=== PATIENT | female | born 1945 | race Caucasian/White ===

== ENCOUNTER 2018-08-02 15:04 | Inpatient (IN) ==
--- NOTE | 2018-08-02 16:08 | Emergency Department Note ---
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 No trauma to the stump. She does not wear a prosthesis. She is in a long-term because "I cannot get around at my daughter's house". She is also had a cough that although chronic is been a bit more productive over the last 3 days. No increased shortness of breath. She does have COPD continues to smoke. The doctor at the long-term called and presented Miss Benson to me regarding a white blood count that went from 16-19 and kidney function that is decreasing as well a most recent GFR of 22. Pain of the stump is been going on for about 2-3 weeks. Been getting dressed at the long-term. Typically red in front of the knee and to the side weight currently is but the skin is typically intact. No fevers no chills no nausea no vomiting oral intake is normal. No diarrhea. No chest or abdominal pain. No urinary symptoms. Pain Scale: 5 - Related Data Home Medications Medication Instructions Recorded Confirmed Albuterol Sulfate [Ventolin Hfa] 2 inh IH Q4H PRN 08/02/18 08/02/18 Atorvastatin [Lipitor] 80 mg PO DAILY 08/02/18 08/02/18 Budesonide/Formoterol 160/4.5 2 puff IH BIDR 08/02/18 08/02/18 [Symbicort 160/4.5] Dexlansoprazole [Dexilant] 60 mg PO DAILY 08/02/18 08/02/18 Fluticasone Propionate Nasal 2 spray NS DAILY 08/02/18 08/02/18 [Flonase] Furosemide [Lasix] 60 mg PO BID 08/02/18 08/02/18 Insulin ASPART [NovoLOG] 11 unit SQ BIDWM 08/02/18 08/02/18 Insulin ASPART [Novolog] 0 unit SQ ACHS 08/02/18 08/02/18 Insulin Glargine,Hum.rec.anlog 18 unit SQ HS 08/02/18 08/02/18 [Basaglar Kwikpen U-100] Ipratropium/Albuterol Neb [Duoneb] 3 ml IH Q6HR 08/02/18 08/02/18 Lisinopril [Zestril] 40 mg PO DAILY 08/02/18 08/02/18 Metoclopramide [Reglan] 5 mg PO ACHS 08/02/18 08/02/18 Rivaroxaban [Xarelto] 15 mg PO DAILY 08/02/18 08/02/18 Sennosides/Docusate Sodium 1 each PO BID PRN 08/02/18 08/02/18 [Senna-S Tablet] Sertraline [Zoloft] 100 mg PO DAILY 08/02/18 08/02/18 Spironolactone 25 mg PO DAILY 08/02/18 08/02/18 metFORMIN [Glucophage] 500 mg PO BIDWM 08/02/18 08/02/18 predniSONE [PredniSONE] 10 mg PO DAILY 08/02/18 08/02/18 Allergies Allergy/AdvReac Type Severity Reaction Status Date / Time Penicillins Allergy Hives Verified 08/26/16 08:23 tetanus immune globulin AdvReac Redness of Verified 08/26/16 08:23 Skin Constitutional: Denies: fever, chills ENT ED: Denies: ear pain, throat pain, dysphagia Cardiovascular: Reports: dyspnea on exertion (Chronic). Denies: chest pain Respiratory: Reports: cough (Chronic and also as per history of present illness), sputum production Gastrointestinal: Denies: abdominal pain, nausea, vomiting, diarrhea Genitourinary: Reports: as per HPI Musculoskeletal: Reports: arthralgia Integumentary: Reports: as per HPI (Erythema as per history of present illness) Neurological: Denies: headache Endocrine: Denies: fatigue Hematological/Lymphatic: Reports: easy bleeding, easy bruising Past Medical History - Past Medical History Medical history: Reports: CHF, COPD, diabetes, GERD, hyperlipidemia, hypertension Psychiatric history: Reports: no psych history - Social History Smoking Status: Current every day smoker Smokeless Tobacco Status: No Alcohol use: Reports: none Drug use: Reports: none Physical Exam - General Limitations: no limitations General appearance: alert, in no apparent distress - Head Head exam: atraumatic, normocephalic - Eye Eye exam: Present: normal appearance - ENT ENT exam: mucous membranes moist - Neck Neck exam: Present: normal inspection - Chest Chest inspection: Present: normal inspection, symmetric chest wall rise - Respiratory Respiratory exam: Present: wheezes (And expiratory wheezes bilaterally symmetrically). Absent: respiratory distress, accessory muscle use - Cardiovascular Cardiovascular exam: Present: regular rate, normal rhythm, normal heart sounds, other (I am not able to palpate either popliteal pulse. +2 bilateral femoral). Absent: systolic murmur, diastolic murmur - Abdominal Exam Abdominal exam: Present: soft, Non-Tender - Extremities Exam Extremities exam: Present: other (Left BKA stump erythema in 2 places anterior midline and laterally. She tells me that the erythema is chronic. It is somewhat painful to palpation. Midline anterior is a scab 1 x 2 cm which was peeled. It revealed a wound bed with no exudate or fluctuance. Laterally there is breakdown of the skin in an area of approximately 2 x 7 cm. There is a pinhole in the medial portion of this area which was bluntly probed with sterile forceps. Bone was not palpated. Lateral area is also fluctuant versus redundant edematous tissue.). Absent: pedal edema, calf tenderness - Neurological Exam Neurological exam: Present: alert - Psychiatric Psychiatric exam: Present: normal affect, normal mood - Skin Skin exam: Present: erythema (As per history of present illness) Course Vital Signs Temperature 98.6 F 08/02/18 15:07 Pulse Rate 90 08/02/18 15:07 Respiratory Rate 18 08/02/18 15:07 Blood Pressure 116/66 08/02/18 15:07 O2 Sat by Pulse Oximetry 99 08/02/18 15:07 Temperature 98.6 F 08/02/18 15:07 Pulse Rate 90 08/02/18 15:07 Respiratory Rate 18 08/02/18 15:07 Blood Pressure 116/66 08/02/18 15:07 O2 Sat by Pulse Oximetry 99 08/02/18 15:07 Oxygen Delivery Oxygen Delivery Room Air Medical Decision Making - MDM Narrative Medical decision making narrative: Leukocytosis. Most likely cause is the leg has a focus. CAT scan done to rule out abscess which was negative. Also some evidence of urinary tract infection as well. We will use Levaquin to cover both likely organisms for each etiology. Ask. wound care to come by tomorrow. Acute kidney injury. We will stop attending medications and IV hydrate her. Be prudent to do this in the hospital and check her labs in the morning to ensure that this is resolving. She is in agreement with this. I spoke with the covering hospitalist and presented the case. He accepted admission. She is alert pleasant and in no visible distress just prior to transfer to her room. - Lab Data Lab results reviewed: Yes I reviewed the patient's lab results. Result diagrams: 08/02/18 16:21 08/02/18 16:21 Lab Results 08/02/18 08/02/18 08/02/18 Range/Units 16:21 16:21 16:21 WBC 21.1 H (4.3-11.1) K/mcL RBC 4.15 (3.82-4.97) M/mcL Hgb 7.9 L (11.5-15.4) g/dL Hct 27.0 L (35.3-44.9) % MCV 65.1 L (83.0-100.0) fL MCH 19.0 L (28.0-33.3) pg MCHC 29.3 L (31.6-35.5) g/dL RDW 19.9 H (11.5-14.5) % Plt Count 576 H (140-400) K/mcL MPV 9.1 L (9.4-12.4) fL Immature Gran % 0.8 (0-4) % Seg Neutrophils % 81.3 % Lymphocytes % 12.9 % Monocytes % 4.8 % Eosinophils % 0.0 % Basophils % 0.2 % Neutrophils # 17.2 H (1.6-8.9) K/mcL Lymphocytes # 2.7 (0.6-4.6) K/mcL Monocytes # 1.0 (0.0-1.3) K/mcL Eosinophils # 0.0 (0.0-0.6) K/mcL Basophils # 0.0 (0.0-0.2) K/mcL Anisocytosis 1+ A (Not Present) PT 12.6 H (9.4-12.1) Seconds INR 1.1 APTT 30.3 (26.0-36.0) Seconds Sodium (136-145) mEq/L Potassium (3.5-5.1) mEq/L Chloride (98-107) mEq/L Carbon Dioxide (23-29) mEq/L BUN (8-23) mg/dL Creatinine (0.60-1.20) mg/dL Est GFR ( Amer) (> 60) Est GFR (Non-Af Amer) (> 60) BUN/Creatinine Ratio (6-26) Glucose (70-105) mg/dL Calculated Osmolality (280-300) Lactic Acid 1.3 (0.5-2.2) mmol/L Calcium (8.6-10.3) mg/dL Magnesium (1.6-2.6) mg/dL Total Bilirubin (0.3-1.0) mg/dL AST (13-39) Units/L ALT (7-52) Units/L Alkaline Phosphatase (34-104) Units/L Serum Total Protein (6.4-8.9) g/dL Albumin (3.5-5.7) g/dL Globulin (2.4-3.5) g/dL Albumin/Globulin Ratio (1.1-2.2) Urine Color (Yellow) Urine Clarity (Clear) Urine pH (5.0-8.0) pH Units Ur Specific [place] (1.010-1.025) Urine Protein (Neg-Trace) mg/dL Urine Glucose (UA) (Normal) mg/dL Urine Ketones (Negative) mg/dL Urine Blood (Negative) Urine Nitrite (Negative) Urine Bilirubin (Negative) Urine Urobilinogen (Normal) mg/dL Ur Leukocyte Esterase (Negative) Urine Microscopic WBC (0-3) per hpf Ur Squamous Epith Cells (None-Few) per lpf Urine Bacteria (None-Few) per hpf Ur Culture Indicated? (NO) 08/02/18 08/02/18 Range/Units 16:21 16:50 WBC (4.3-11.1) K/mcL RBC (3.82-4.97) M/mcL Hgb (11.5-15.4) g/dL Hct (35.3-44.9) % MCV (83.0-100.0) fL MCH (28.0-33.3) pg MCHC (31.6-35.5) g/dL RDW (11.5-14.5) % Plt Count (140-400) K/mcL MPV (9.4-12.4) fL Immature Gran % (0-4) % Seg Neutrophils % % Lymphocytes % % Monocytes % % Eosinophils % % Basophils % % Neutrophils # (1.6-8.9) K/mcL Lymphocytes # (0.6-4.6) K/mcL Monocytes # (0.0-1.3) K/mcL Eosinophils # (0.0-0.6) K/mcL Basophils # (0.0-0.2) K/mcL Anisocytosis (Not Present) PT (9.4-12.1) Seconds INR APTT (26.0-36.0) Seconds Sodium 133 L (136-145) mEq/L Potassium 4.7 (3.5-5.1) mEq/L Chloride 98 (98-107) mEq/L Carbon Dioxide 27 (23-29) mEq/L BUN 49 H (8-23) mg/dL Creatinine 1.74 H (0.60-1.20) mg/dL Est GFR ( Amer) 35 L (> 60) Est GFR (Non-Af Amer) 29 L (> 60) BUN/Creatinine Ratio 28 H (6-26) Glucose 166 H (70-105) mg/dL Calculated Osmolality 293 (280-300) Lactic Acid (0.5-2.2) mmol/L Calcium 9.1 (8.6-10.3) mg/dL Magnesium 2.3 (1.6-2.6) mg/dL Total Bilirubin 0.4 (0.3-1.0) mg/dL AST 20 (13-39) Units/L ALT 11 (7-52) Units/L Alkaline Phosphatase 64 (34-104) Units/L Serum Total Protein 6.3 L (6.4-8.9) g/dL Albumin 3.6 (3.5-5.7) g/dL Globulin 2.7 (2.4-3.5) g/dL Albumin/Globulin Ratio 1.3 (1.1-2.2) Urine Color Yellow (Yellow) Urine Clarity Clear (Clear) Urine pH 5.0 (5.0-8.0) pH Units Ur Specific [place] 1.015 (1.010-1.025) Urine Protein Negative (Neg-Trace) mg/dL Urine Glucose (UA) Normal (Normal) mg/dL Urine Ketones Negative (Negative) mg/dL Urine Blood Negative (Negative) Urine Nitrite Positive A (Negative) Urine Bilirubin Negative (Negative) Urine Urobilinogen Normal (Normal) mg/dL Ur Leukocyte Esterase Negative (Negative) Urine Microscopic WBC 3-5 H (0-3) per hpf Ur Squamous Epith Cells Few (None-Few) per lpf Urine Bacteria Many H (None-Few) per hpf Ur Culture Indicated? YES A (NO) - Radiology Data Radiology results reviewed: Yes I reviewed the patient's radiology results.
[2018-08-02 16:32] LABS: Basophils % 0.2 %; Hemoglobin 7.9 g/dL (11.5-15.4); Immature Granulocytes % 0.8 % (0-4); Lymphocytes # 2.7 K/mcL (0.6-4.6); Lymphocytes % 12.9 %; Mean Corpuscular HGB Conc 29.3 g/dL (31.6-35.5); Mean Corpuscular Volume 65.1 fL (83.0-100.0); Mean Platelet Volume 9.1 fL (9.4-12.4); Monocytes % 4.8 %; Platelet Count 576 K/mcL (140-400); Red Blood Count 4.15 M/mcL (3.82-4.97); Red Cell Distribution Width 19.9 % (11.5-14.5); Segmented Neutrophils % 81.3 %
[2018-08-02 16:34] LABS: Neutrophils # 17.2 K/mcL (1.6-8.9)
[2018-08-02 16:35] LABS: Anisocytosis 1+ (Not Present)
[2018-08-02 16:42] LABS: INR 1.1; Prothrombin Time 12.6 Seconds (9.4-12.1)
[2018-08-02 16:44] LABS: Activated Partial Thrombo Time 30.3 Seconds (26.0-36.0)
[2018-08-02 16:49] LABS: Albumin 3.6 g/dL (3.5-5.7); Albumin/Globulin Ratio 1.3 (1.1-2.2); Bilirubin,Total 0.4 mg/dL (0.3-1.0); Calcium 9.1 mg/dL (8.6-10.3); Globulin 2.7 g/dL (2.4-3.5); Magnesium 2.3 mg/dL (1.6-2.6); Potassium 4.7 mEq/L (3.5-5.1); Total Protein 6.3 g/dL (6.4-8.9)
[2018-08-02 17:03] LABS: Bilirubin,Urine Negative (Negative); Blood,Urine Negative (Negative); Clarity,Urine Clear (Clear); Color,Urine Yellow (Yellow); Glucose,Urine (UA) Normal (Normal); Ketones,Urine Negative (Negative); Leukocyte Esterase,Urine Negative (Negative); Nitrite,Urine Positive (Negative); Protein,Urine Negative (Neg-Trace); Specific Gravity,Urine 1.015 (1.010-1.025); Urobilinogen,Urine Normal (Normal)
[2018-08-02] MEDS ORDERED: 0.9 % Sodium Chloride 1,000 ML IVC ONE (17:13)
[2018-08-02 17:16] LABS: Bacteria,Urine Many per hpf (None-Few); Squamous Epithelial Cell,Urine Few per lpf (None-Few)
[2018-08-02] MEDS ORDERED: Levofloxacin 500 MG/100 ML 500 MG/100 ML BAG IVPB SCH (18:30)
[2018-08-02] MEDS ORDERED: 0.9 % Sodium Chloride 1,000 ML IVC SCH ×2 (18:45→18:51)
[2018-08-02] MEDS ORDERED: Naloxone 0.4 MG/ML INJ IVP PRN (18:51)
[2018-08-02] MEDS ORDERED: Sennosides/Docusate Sodium TABLET PO PRN (18:51)
[2018-08-02] MEDS ORDERED: Levofloxacin 750 MG/150 ML 750 MG/150 ML BAG IVPB SCH (19:05)
[2018-08-02] MEDS: 0.9 % Sodium Chloride 1,000 ML IVC SCH (20:37)
[2018-08-02] MEDS: Budesonide/Formoterol 160/4.5 1 PUFF INH IH SCH (20:49)
[2018-08-02] MEDS ORDERED: Insulin DETEMIR 100 UNIT/ML per UNIT SQ ONE (21:00)
[2018-08-02] MEDS ORDERED: traMADol 50 MG TABLET PO PRN (21:02)
[2018-08-02] MEDS ORDERED: Acetaminophen 325 MG TABLET PO PRN (21:05)
[2018-08-02] MEDS ORDERED: Ondansetron ODT 4 MG TAB.RAPDIS SL PRN (23:00)
[2018-08-02] MEDS: Ipratropium/Albuterol Neb 3 ML IH SCH (23:14)
[2018-08-03] MEDS ORDERED: traMADol 50 MG TABLET PO PRN (00:21)
[2018-08-03] MEDS ORDERED: Ondansetron ODT 4 MG TAB.RAPDIS SL PRN (00:21)
[2018-08-03] MEDS ORDERED: Acetaminophen 325 MG TABLET PO PRN (00:21)
[2018-08-03] MEDS: 0.9 % Sodium Chloride 1,000 ML IVC SCH (04:26)
[2018-08-03 06:10] LABS: Basophils % 0.2 %; Eosinophils % 0.1 %; Hematocrit 24.5 % (35.3-44.9); Hemoglobin 7.1 g/dL (11.5-15.4); Immature Granulocytes % 0.5 % (0-4); Lymphocytes # 1.4 K/mcL (0.6-4.6); Lymphocytes % 10.1 %; Mean Corpuscular Hemoglobin 18.9 pg (28.0-33.3); Mean Corpuscular Volume 65.2 fL (83.0-100.0); Mean Platelet Volume 9.1 fL (9.4-12.4); Monocytes # 0.9 K/mcL (0.0-1.3); Monocytes % 6.3 %; Neutrophils # 11.7 K/mcL (1.6-8.9); Platelet Count 518 K/mcL (140-400); Red Blood Count 3.76 M/mcL (3.82-4.97); Red Cell Distribution Width 20.1 % (11.5-14.5); Segmented Neutrophils % 82.8 %
[2018-08-03 06:37] LABS: Calcium 8.4 mg/dL (8.6-10.3)
[2018-08-03 06:48] LABS: Hypochromasia Present (Not Present); Microcytosis Present (Not Present)
[2018-08-03 06:49] LABS: Anisocytosis 2+ (Not Present); Poikilocytosis 1+ (Not Present)
[2018-08-03] MEDS: Ipratropium/Albuterol Neb 3 ML IH SCH ×3 (08:22→21:09)
[2018-08-03] MEDS: *HR* Rivaroxaban 15 MG TABLET PO SCH (08:24)
[2018-08-03] MEDS: predniSONE 10 MG TABLET PO SCH (08:24)
[2018-08-03] MEDS: Insulin LISPRO 300 UNITS/3 ML VIAL SQ SCH ×2 (08:25→17:24)
[2018-08-03] MEDS: Budesonide/Formoterol 160/4.5 1 PUFF INH IH SCH ×2 (08:34→21:10)
[2018-08-03] MEDS ORDERED: Levofloxacin 500 MG/100 ML 500 MG/100 ML BAG IVPB SCH ×2 (09:00)
--- NOTE | 2018-08-03 11:38 | Internal Med History&Physical ---
Addendum entered and electronically signed by Kwan Syed DO Yamil 08/03/18 14:52: I have personally performed a face to face evaluation on this patient. I have reviewed and agree with the care plan. History and Exam by me shows: Addendum entered and electronically signed by Kwan LoboDO 08/03/18 14:32: I have personally performed a face to face evaluation on this patient. I have reviewed and agree with the care plan. History and Exam by me shows: Original Note: Date of Encounter: 08/03/18 Time of Encounter: 11:36 Assessment and Plan (1) Leukocytosis Current visit: Yes Status: Acute White blood cell count 14.1. Afebrile. Will continue to monitor. Continue Levaquin IV. Blood cultures pending. Urine culture pending. Qualifiers: Leukocytosis type: unspecified Qualified Code(s): D72.829 - Elevated white blood cell count, unspecified (2) History of right below knee amputation Current visit: Yes Status: Acute Assist with ADLs as necessary. (3) Wounds, multiple Current visit: Yes Status: Acute Wound to Right BKA. Will consult wound care (4) Acute kidney injury Current visit: Yes Status: Acute BUN 36, creatinine 1.4. Continue IV fluids. Will repeat labs. (5) Anemia Current visit: Yes Status: Acute Hemoglobin 7.1. Patient is asymptomatic. Will repeat CBC. Qualifiers: Anemia type: unspecified type Qualified Code(s): D64.9 - Anemia, unspecified (6) Hyperlipidemia Current visit: Yes Status: Chronic Continue Lipitor. Qualifiers: Hyperlipidemia type: unspecified Qualified Code(s): E78.5 - Hyperlipidemia, unspecified (7) Diabetes mellitus type 2, insulin dependent Current visit: Yes Status: Acute Controlled with insulin. Monitor fingerstick blood sugar. Will adjust medicines as necessary. (8) COPD (chronic obstructive pulmonary disease) Current visit: Yes Status: Chronic Continue inhaled meds. Monitor oxygen level. stAble at this time. Qualifiers: COPD type: unspecified COPD Qualified Code(s): J44.9 - Chronic obstructive pulmonary disease, unspecified (9) Tobacco use Current visit: Yes Status: Acute Internal Medicine - H&P: HPI Admitted From: Emergency Dept Plans for Post Hospital Care: Transfer Snf Care History of present illness: Ms. Benson is a 73 year old female admitted to inpatient unit after presenting to the emergency room with increased cough for 3 days, elevated white count and elevated be UN and creatinine. Patient has been living in [facility] for the past 3 years. She has a right BKA times 3 years after having gangrene. She has had a chronic wound on the stump. Denies fever, chills, nausea vomiting or diarrhea. Denies any urinary symptoms. Denies any shortness of breath or chest pain.. States cough is productive. Past medical history includes COPD. Patient continues to smoke cigarettes. Past Med Surg Social Fam HX - Past Medical History Medical history: CHF, COPD, diabetes, GERD, hyperlipidemia, hypertension Additional medical history: PVD, ANEMIA Psychiatric history: no psych history - Past Surgical History Additional surgical history: R BKA - Social History Smoking Status: Current every day smoker Packs per day: 0.5 Smokeless Tobacco Status: No Alcohol use: none Drug use: none - Family History Mother Living Status: Age at : 63 Cause of : CO Hx Family Cardiac Disorders: Yes (CO) Father Age at : 46 Cause of : Suicide Hx Family Psychosocial Disorders: Yes (Alchoholic) Internal Medicine - H&P: Meds Albuterol Sulfate [Ventolin Hfa] 2 inh IH Q4H PRN 08/02/18 [History] Atorvastatin [Lipitor] 80 mg PO DAILY 08/02/18 [History] Budesonide/Formoterol 160/4.5 [Symbicort 160/4.5] 2 puff IH BIDR 08/02/18 [History] Dexlansoprazole [Dexilant] 60 mg PO DAILY 08/02/18 [History] Fluticasone Propionate Nasal [Flonase] 2 spray NS DAILY 08/02/18 [History] Furosemide [Lasix] 60 mg PO BID 08/02/18 [History] Insulin ASPART [NovoLOG] 11 unit SQ BIDWM 08/02/18 [History] Insulin ASPART [Novolog] 0 unit SQ ACHS 08/02/18 [History] Insulin Glargine,Hum.rec.anlog [Basaglar Kwikpen U-100] 18 unit SQ HS 08/02/18 [History] Ipratropium/Albuterol Neb [Duoneb] 3 ml IH Q6HR 08/02/18 [History] Lisinopril [Zestril] 40 mg PO DAILY 08/02/18 [History] Metoclopramide [Reglan] 5 mg PO ACHS 08/02/18 [History] Rivaroxaban [Xarelto] 15 mg PO DAILY 08/02/18 [History] Sennosides/Docusate Sodium [Senna-S Tablet] 1 each PO BID PRN 08/02/18 [History] Sertraline [Zoloft] 100 mg PO DAILY 08/02/18 [History] Spironolactone 25 mg PO DAILY 08/02/18 [History] metFORMIN [Glucophage] 500 mg PO BIDWM 08/02/18 [History] predniSONE [PredniSONE] 10 mg PO DAILY 08/02/18 [History] Allergy/AdvReac Type Severity Reaction Status Date / Time Penicillins Allergy Hives Verified 08/26/16 08:23 tetanus immune globulin AdvReac Redness of Verified 08/26/16 08:23 Skin All Systems PM: A 10-system review of systems was performed and is negative for pertinent findings except as documented above in the HPI. - Constitutional Constitutional: no chills, no fever(s), no night sweats - EENT Eyes: no change in vision, no discharge, no pain, no photophobia Ears: no ear discharge, no ear pain, no tinnitus Nose, mouth and throat: no dysphagia, no nasal discharge, no neck pain, no sore throat - Cardiovascular Cardiovascular ROS IM: no chest pain, no diaphoresis, no dyspnea, no lightheadedness, no palpitations, no syncope - Respiratory Respiratory: no cough, no dyspnea, no wheezing, no excessive phlegm production - Gastrointestinal Gastrointestinal: no abdominal pain, no diarrhea, no hematemesis, no hematochezia, no melena, no nausea, no vomiting - Genitourinary Genitourinary: no change in urinary stream, no dysuria, no flank pain, no hematuria - Musculoskeletal Musculoskeletal ROS IM: no numbness, no tingling - Integumentary Integumentary IM: no rash, no unusual bruising - Neurological Neurological ROS: no confusion, no convulsions, no focal weakness, no numbness, no tingling, no tremor(s) - Hematologic/Lymphatic Hematologic/Lymphatic: no easy bruising - Constitutional Vitals: Temp Pulse Resp BP Pulse Ox 97.8 F 89 19 108/67 94 08/03/18 07:55 08/03/18 07:55 08/03/18 09:02 08/03/18 07:55 08/03/18 09:02 General appearance: Present: cooperative, A&O X 3, pleasant, no acute distress, answers questions appropriately - Head Head exam: Present: atraumatic, normocephalic - Eye Eye exam: Present: PERRL, conjuntiva pink, sclera anicteric Pupils: Present: PERRL - Neck Neck exam general surgery: Present: supple, trachea midline. Absent: lymphadenopathy - Respiratory Respiratory exam: Present: rhonchi. Absent: accessory muscle use, rales, whee zes Additional comments: Rhonchi to right upper lobe. - Cardiovascular Cardiovascular exam: Present: RRR, +S1, +S2. Absent: diastolic murmur, gallop, rubs, systolic murmur - GI/Abdominal GI/Abdominal exam: Present: normal bowel sounds, soft, no peritoneal signs. Absent: distended, tenderness - Extremities Exam Extremities exam: Present: warm, radial pulses palpable and symmetrical. Absent: calf tenderness, cyanotic, pedal edema Additional comments: Right BKA - Neurological Exam Neurological exam: Present: CN II-XII intact, oriented X3, no focal deficits. Absent: pronater drift, facial droop, speech deficit - Skin Skin exam: Present: dry, intact Additional comments: Wound to anterior right BKA stump. Lateral wounds with slight exudate. No drainage. Middle wound with granulated tissue in wound bed. scattered ecchymosis to body. Internal Med - H&P Results - Labs CBC & Chem 7: 08/03/18 05:40 08/03/18 05:40 Labs: Short CBC 08/02/18 08/03/18 Range/Units 16:21 05:40 WBC 21.1 H 14.1 H (4.3-11.1) K/mcL Hgb 7.9 L 7.1 L (11.5-15.4) g/dL Hct 27.0 L 24.5 L (35.3-44.9) % Plt Count 576 H 518 H (140-400) K/mcL Neutrophils # 17.2 H 11.7 H (1.6-8.9) K/mcL BMP 08/02/18 08/03/18 16:21 05:40 Sodium 133 L 136 Potassium 4.7 5.0 Chloride 98 105 Carbon Dioxide 27 26 BUN 49 H 36 H Creatinine 1.74 H 1.40 H Glucose 166 H 111 H Calcium 9.1 8.4 L Liver Function 08/02/18 Range/Units 16:21 Total Bilirubin 0.4 (0.3-1.0) mg/dL AST 20 (13-39) Units/L ALT 11 (7-52) Units/L Alkaline Phosphatase 64 (34-104) Units/L Albumin 3.6 (3.5-5.7) g/dL Urine 08/02/18 Range/Units 16:50 Urine Color Yellow (Yellow) Urine Clarity Clear (Clear) Urine pH 5.0 (5.0-8.0) pH Units Ur Specific [place] 1.015 (1.010-1.025) Urine Protein Negative (Neg-Trace) mg/dL Urine Glucose (UA) Normal (Normal) mg/dL - Impressions ITS Impressions Chest X-Ray 08/02/18 16:03 IMPRESSION: No acute cardiopulmonary disease. D/ / Danny Pal MD / Danny Pal MD Interpreting Provider: Danny Pal MD Knee CT 08/02/18 17:33 IMPRESSION: 1. No evidence of osteomyelitis or abscess. 2. Skin thickening and suspected small shallow soft tissue ulceration about the lateral amputation site. D/ / 08/02/2018 18:01:54 Tee Rider MD / amy Interpreting Provider: Tee Rider MD - VTE Reasons for not Prescribing Prophylaxis: Not indicated-Anticoagulated or INR t herapeutic
[2018-08-03] MEDS: Fluticasone Propionate Nasal 50 MCG/SPRAY BOTTLE NS SCH ×2 (11:47→12:29)
[2018-08-03] MEDS ORDERED: Insulin DETEMIR 100 UNIT/ML X5UNITS SQ SCH (21:00)
[2018-08-03] MEDS: Insulin DETEMIR 100 UNIT/ML X5UNITS SQ SCH (21:09)
[2018-08-04] MEDS: Ipratropium/Albuterol Neb 3 ML IH SCH ×4 (03:41→20:48)
[2018-08-04 05:49] LABS: Basophils % 0.2 %; Hematocrit 24.6 % (35.3-44.9); Immature Granulocytes % 0.8 % (0-4); Lymphocytes # 1.1 K/mcL (0.6-4.6); Lymphocytes % 6.7 %; Mean Corpuscular HGB Conc 28.5 g/dL (31.6-35.5); Mean Corpuscular Hemoglobin 18.9 pg (28.0-33.3); Mean Corpuscular Volume 66.5 fL (83.0-100.0); Mean Platelet Volume 9.2 fL (9.4-12.4); Monocytes # 1.3 K/mcL (0.0-1.3); Monocytes % 7.7 %; Neutrophils # 14.4 K/mcL (1.6-8.9); Platelet Count 517 K/mcL (140-400); Red Cell Distribution Width 20.4 % (11.5-14.5); Segmented Neutrophils % 84.6 %
[2018-08-04 06:02] LABS: Potassium 4.8 mEq/L (3.5-5.1)
[2018-08-04] MEDS ORDERED: Aminoglycoside Consult 1 EACH MC ONE (06:09)
[2018-08-04] MEDS: Insulin LISPRO 300 UNITS/3 ML VIAL SQ SCH ×2 (08:15→17:14)
[2018-08-04] MEDS: predniSONE 10 MG TABLET PO SCH (08:15)
[2018-08-04] MEDS: *HR* Rivaroxaban 15 MG TABLET PO SCH (08:15)
[2018-08-04] MEDS: Fluticasone Propionate Nasal 50 MCG/SPRAY BOTTLE NS SCH (08:16)
[2018-08-04] MEDS: Budesonide/Formoterol 160/4.5 1 PUFF INH IH SCH ×2 (09:05→20:51)
--- NOTE | 2018-08-04 13:52 | Internal Med Progress Note ---
Date of Encounter: 08/04/18 Time of Encounter: 13:49 - Assessment and plan (1) Wounds, multiple Current Visit: Yes Status: Acute Assessment and plan: Patient's right BKA stump with dressing that is dry and intact. Patient remains afebrile at this time. Alert sent from laboratory on wound culture of right stump, which shows positive for MRSA. Patient started on vancomycin per Dr. Lobo. We will consult wound care to evaluate. (2) Diabetes mellitus type 2, insulin dependent Current Visit: Yes Status: Acute Assessment and plan: Patient continues to progress well with glucose more controlled today. Most recent glucose was at 148. We will continue with sliding scale coverage. Continue with current plan of care (3) COPD (chronic obstructive pulmonary disease) Current Visit: Yes Status: Chronic Assessment and plan: Patient appears relaxed with respiratory status. Lungs are diminished throughout basilar [place] but otherwise clear. No productive cough. Denies any dyspnea. We will continue with current medications and plan a care. Qualifiers: COPD type: unspecified COPD Qualified Code(s): J44.9 - Chronic obstructive pulmonary disease, unspecified - Time Spent With Patient less than 15 minutes - Subjective Interval history: Patient appears relaxed and currently denies any discomforts or shortness of breath. Patient denies any productive cough. Lab results of wound culture to her right BKA stump were received which shows positive for MRSA. Patient currently has dressing to right stump which is dry and intact. - Constitutional Vitals: Temp Pulse Resp BP Pulse Ox 97.8 F 83 21 107/66 90 08/04/18 11:34 08/04/18 11:34 08/04/18 11:34 08/04/18 11:34 08/04/18 11:34 General appearance: Present: cooperative, A&O X 3, pleasant, no acute distress, answers questions appropriately - Head Head exam: Present: atraumatic, normocephalic - Eye Eye exam: Present: PERRL, conjuntiva pink, sclera anicteric Pupils: Present: PERRL - Neck Neck exam general surgery: Present: supple, trachea midline. Absent: lymphadenopathy - Respiratory Respiratory exam: Present: CTAB. Absent: accessory muscle use, rales, rhonchi, wheezes Additional comments: Lungs are clear throughout upper [place] with diminished breath sounds towards posterior basis. Patient denies any dyspnea. No productive cough noted. Respiratory effort appears relaxed - Cardiovascular Cardiovascular exam: Present: RRR, +S1, +S2. Absent: diastolic murmur, gallop, rubs, systolic murmur - GI/Abdominal GI/Abdominal exam: Present: normal bowel sounds, soft, no peritoneal signs. Absent: distended, tenderness - Extremities Exam Extremities exam: Present: warm, radial pulses palpable and symmetrical. Absent: calf tenderness, cyanotic, pedal edema Additional comments: Right BKA with 2 dressings at the stump which are dry and intact. - Neurological Exam Neurological exam: Present: CN II-XII intact, oriented X3, no focal deficits. Absent: pronater drift, facial droop, speech deficit - Skin Skin exam: Present: dry, intact Internal Medicine: Result - Labs CBC & Chem 7: 08/04/18 05:30 08/04/18 05:30 Labs: Short CBC 08/04/18 Range/Units 05:30 WBC 17.0 H (4.3-11.1) K/mcL Hgb 7.0 L (11.5-15.4) g/dL Hct 24.6 L (35.3-44.9) % Plt Count 517 H (140-400) K/mcL Neutrophils # 14.4 H (1.6-8.9) K/mcL BMP 08/04/18 05:30 Sodium 138 Potassium 4.8 Chloride 105 Carbon Dioxide 24 BUN 29 H Creatinine 1.31 H Glucose 206 H Calcium 9.0 - ABG Interpretation ABG results: PT/INR, D-dimer PT 12.6 Seconds (9.4-12.1) H 08/02/18 16:21 - VTE Reasons for not Prescribing Prophylaxis: Not indicated-Anticoagulated or INR therapeutic Consult Discharge Plan - Plan Referrals: Lorena Zavala MD [Primary Care Provider] -
[2018-08-04] MEDS ORDERED: Levofloxacin 750 MG/150 ML 750 MG/150 ML BAG IVPB SCH (19:05)
[2018-08-04] MEDS: Insulin DETEMIR 100 UNIT/ML X5UNITS SQ SCH (20:23)
[2018-08-05 00:40] VITALS: BP 90/47
[2018-08-05] MEDS: Ipratropium/Albuterol Neb 3 ML IH SCH (03:13)
[2018-08-05] MEDS ORDERED: 0.9 % Sodium Chloride 1,000 ML ONE (04:01)
--- NOTE | 2018-08-05 04:17 | Emergency Department Note ---
START Narrative - START START: called to see pt on medical floor for acute change in mental status. she had been up to bathroom w/ RN at 0315 and was mentating normally, RN passed by room and heard gurgling respirations, checked on pt and found her unresponsive. .she was not responding to verbal or tactile stimulation and they called me to check on pt. at arrival in room RN was attempting to get manual BP w/out success. pt was pale and unresponsive w/ no spontaneous respirs. Inquired code status and she is DNR-CC. EXAM: no pulse, no PMI, no spont resp, skin cool and dry and pale. tongue and lips cyanotic, no gag, pupils wide and not responsive, no corneal reflex. neuro w/out any movement of extremities or attempts at respirations. not responsive to painful stimuli.no signs of trauma pt has right BKA and midline sternotomy scar well-healed. no family at bedside. abd soft and nondistended. honored DNR status and time of was 4. requested of RN to inform admitting physician of pt's , Dr Natarajan called, Yamil covering. family notified
== END 2018-08-05 06:10 | disposition expired | DRG 565 ==
LOC: EMEROOGRE 15:04 → INPGRE 15:04
PROVIDERS: ADMIT Internal Medicine; ATTEND Internal Medicine